=== PATIENT | female | born 1955 | race Two or more races ===

== ENCOUNTER 2018-01-18 06:52 | Emergency (ER) | payer OTHER ==
[~2018-01-18] VITALS: Ht 170.2 cm; Wt 108.9 kg
[~2018-01-18 06:52] MED LIST: ANTIVERT25 M1; CARDIZEM CD240 MG; CELEBREX100 MG PO; COZAAR100 MG; DIAZEPAM10 MG PO; HYZAAR 100-251 UDTAB; LOTREL 10/20 CA1 CAP; SKELAXIN800 MG PO
[2018-01-18] MEDS ORDERED: AMBIEN CR12.5 MG PO (08:34)
== END 2018-01-18 08:37 | disposition home or self-care (01) ==
LOC: ER 06:52
DX: J02.8 Acute pharyngitis due to other specified organisms (principal)

== ENCOUNTER → 2018-02-01 | Emergency (ER) | payer OTHER ==
[~2018-02-01] VITALS: Ht 170.2 cm; Wt 108.9 kg
[~2018-02-01] MED LIST changes: +AMBIEN CR12.5 MG PO
== END | disposition home or self-care (01) ==
LOC: ER 05:51
DX: K52.9 Noninfective gastroenteritis and colitis, unspecified (principal)

== ENCOUNTER 2018-08-07 06:24 | Emergency (ER) | payer OTHER ==
[~2018-08-07] VITALS: Ht 170.2 cm; Wt 106.6 kg
[2018-08-07] MEDS ORDERED: LIPITOR40 MG (06:58)
== END 2018-08-07 15:14 | disposition home or self-care (01) ==
LOC: ER 06:24
DX: J40 Bronchitis, not specified as acute or chronic (principal); K29.60 Other gastritis without bleeding; R50.9 Fever, unspecified; N39.0 Urinary tract infection, site not specified; B96.29 Other Escherichia coli [E. coli] as the cause of diseases classified elsewhere; J11.1 Influenza due to unidentified influenza virus with other respiratory manifestations

== ENCOUNTER 2018-10-06 08:37 | Emergency (ER) | payer OTHER ==
[~2018-10-06] VITALS: Ht 170.2 cm; Wt 108.9 kg
[~2018-10-06 08:37] MED LIST changes: +LIPITOR40 MG
[2018-10-06] MEDS ORDERED: CIPRO500 MG PO (16:44)
[2018-10-06] MEDS ORDERED: KETO10TA2 PO (16:44)
== END 2018-10-06 17:08 | disposition home or self-care (01) ==
LOC: ER 08:37
DX: R10.11 Right upper quadrant pain (principal)

== ENCOUNTER 2019-01-22 06:34 | Emergency (ER) | payer OTHER ==
[~2019-01-22] VITALS: Ht 170.2 cm; Wt 108.9 kg
[~2019-01-22 06:34] MED LIST changes: +CIPRO500 MG PO; +KETO10TA2 PO
== END 2019-01-22 10:50 | disposition home or self-care (01) ==
LOC: ER 06:34
DX: B34.9 Viral infection, unspecified (principal); M54.5 Low back pain; R50.9 Fever, unspecified

== ENCOUNTER 2020-12-14 08:54 | Outpatient (CLI) | payer OTHER | END 2020-12-14 08:55 | disposition home or self-care (01) | LOC: NUCLEAR 08:54 | PROVIDERS: ATTEND Internal Medicine Cardiovascular Disease | DX: I10 Essential (primary) hypertension (principal) ==

== ENCOUNTER 2021-08-31 06:04 | Emergency (ER) | payer OTHER ==
[~2021-08-31] VITALS: Ht 170.2 cm; Wt 104.3 kg
[2021-08-31] MEDS ORDERED: HYDROCHLOROTHIA25 MG (06:24)
[2021-08-31] MEDS ORDERED: VISTARIL50 MG PO (14:49)
== END 2021-08-31 15:22 | disposition home or self-care (01) ==
LOC: ER 06:04
DX: R22.43 Localized swelling, mass and lump, lower limb, bilateral (principal); M79.661 Pain in right lower leg; M79.662 Pain in left lower leg; I10 Essential (primary) hypertension; F41.8 Other specified anxiety disorders

== ENCOUNTER 2023-09-17 12:47 | Outpatient (CLI) | payer OTHER ==
[~2023-09-17 12:47] MED LIST changes: +HYDROCHLOROTHIA25 MG; +VISTARIL50 MG PO
== END 2023-09-17 12:48 | disposition home or self-care (01) ==
LOC: NUCLEAR 12:47
DX: I87.2 Venous insufficiency (chronic) (peripheral) (principal)